=== PATIENT | female | born 1970 | race Caucasian/White ===

== ENCOUNTER 2023-02-25 05:27 | Outpatient (CLI) | payer BC ==
[~2023-02-25] VITALS: Ht 152.4 cm; Wt 60.9 kg
== END 2023-02-25 16:11 | disposition home or self-care (01) ==
LOC: PREOP 05:27
PROVIDERS: ATTEND Podiatrist Foot & Ankle Surgery
DX: Z01.818 Encounter for other preprocedural examination (principal)

== ENCOUNTER 2023-03-04 06:06 | Day surgery (SDC) | payer BC ==
[2023-03-04] VITALS (9 sets, daily range): BP systolic 95–130; BP diastolic 61–90
[~2023-03-04] VITALS: Ht 152 cm; Wt 60.9 kg
[2023-03-04] MEDS ORDERED: ceFAZolin INJECTION 1,000 MG in NS (IVPB) 50 ML IV ONE (06:30)
[2023-03-04] MEDS ORDERED: LACTATED RINGERS 1,000 ML IV PRN (06:30)
[2023-03-04] MEDS ORDERED: FAMOTIDINE 20MG/2ML IV (PEPCID) ONE (06:54)
[2023-03-04] MEDS ORDERED: ONDANSETRON 4 MG/2 ML (SDV) Z0FRAN ONE ×2 (06:54→07:14)
[2023-03-04] MEDS ORDERED: SCOPOLAMINE 1.5 MG (TRANSDERM-SCOP) PATCH ONE (06:54)
[2023-03-04] MEDS ORDERED: LIDOCAINE 1% INJ 20 ML VIAL ONE (06:58)
[2023-03-04] MEDS ORDERED: BUPIVACAINE 0.5% 30 ML (SENSORCAINE) VIAL ONE (06:59)
[2023-03-04] MEDS ORDERED: FAMOTIDINE 20MG/2ML IV (PEPCID) IV ONE (07:00)
[2023-03-04] MEDS ORDERED: CATHETER FLUSH 10 ML SYR IVP PRN (07:00)
[2023-03-04] MEDS ORDERED: ONDANSETRON 4 MG/2 ML (SDV) Z0FRAN IV ONE (07:00)
[2023-03-04] MEDS ORDERED: SCOPOLAMINE 1.5 MG (TRANSDERM-SCOP) PATCH TOP ONE (07:00)
[2023-03-04] MEDS ORDERED: MIDAZOLAM 2 MG/2 ML (VERSED) VIAL ONE (07:14)
[2023-03-04] MEDS ORDERED: fentaNYL INJ 100 MCG/2 ML AMP ONE (07:14)
[2023-03-04] MEDS ORDERED: PROPOFOL INJECTION 50 ML IV ONE (07:14)
[2023-03-04] MEDS ORDERED: proPOfol 200 MG/20 ML (DIPRIVAN) VIAL IV ONE (07:14)
--- NOTE | 2023-03-04 07:52 | Progress Note-Pre Operative ---
Pre-Operative Progress Note Date of Available H&P: Mar 04, 2023 Date H&P Reviewed: Mar 04, 2023 Time H&P Reviewed: 07:52 Pre-Operative Diagnosis: Hallux Limitus right YENNIFER BAINS DPTao Mar 04, 2023 07:52
--- NOTE | 2023-03-04 08:55 | Anesthesia-General Post-Op ---
General Patient Condition Mental Status/LOC: Same as Preop Cardiovascular: Satisfactory Nausea/Vomiting: Absent Respiratory: Satisfactory Pain: Controlled Complications: Absent Post Op Complications Complications None Follow Up Care/Instructions Patient Instructions None needed. Anesthesia/Patient Condition Patient Condition Patient is doing well, no complaints, stable vital signs, no apparent adverse anesthesia problems. No complications reported per nursing. RAFAELA TRIPP CRNA Mar 04, 2023 08:55
[2023-03-04] MEDS ORDERED: LACTATED RINGERS 1,000 ML IV SCH (09:00)
[2023-03-04] MEDS ORDERED: ONDANSETRON 4 MG/2 ML (SDV) Z0FRAN IVP PRN (09:00)
[2023-03-04] MEDS ORDERED: HYDROcodone/APAP 5 MG/325 MG (LORTAB) TAB PO PRN (09:00)
[2023-03-04] MEDS ORDERED: morphine INJ 10 MG/ML 1ML (SYR OR VIAL) IVP ONE (09:00)
--- NOTE | 2023-03-04 09:00 | Progress Note-Post Operative ---
Post-Operative Progess Note Surgeon (s)/Vibration Analyst (s) Surgeon YENNIFER BAINS DPM Vibration Analyst: none Pre-Operative Diagnosis Hallux Limitus right Post-Operative Diagnosis Same Procedure & Operative Findings Date of Procedure 03/04/23 Procedure Performed/Findings Cheilectomy, right Anesthesia Type General Estimated Blood Loss Estimated blood loss (mL): Minimal Specimens/Packing Specimens Removed bone of 1st MTPJ YENNIFER BAINS DPM Mar 04, 2023 09:00
[2023-03-04] MEDS ORDERED: ACHD5005 PO (09:03)
--- NOTE | 2023-03-04 14:43 | OPERATIVE REPORT ---
DATE OF SERVICE: 03/04/2023 SURGEON: Marina Bains DPM PREOPERATIVE DIAGNOSIS: Hallux rigidus, right. POSTOPERATIVE DIAGNOSIS: Hallux rigidus, right. PROCEDURE: Cheilectomy, right foot. WOUND CLASS: Clean. ANESTHESIA: General. HEMOSTASIS: Pneumatic thigh tourniquet at 250 mmHg. INDICATIONS: This 52-year-old female who presents complaining of a painful right great toe joint. Conservative therapy is met with unsatisfactory results and the patient is agreeable to surgical intervention after risks and complications were discussed at length. No guarantees were extended to the patient and she is willing to proceed. DESCRIPTION OF PROCEDURE: The patient was brought back to the operating table and placed in secure supine position. Appropriate timeout was performed. A general anesthetic was then induced. A pneumatic thigh tourniquet was placed on the right lower extremity over several layers of padding. The right foot was anesthetized utilizing 10 mL of 1:1 mixture of 1% Xylocaine and 0.5% Marcaine injected in a Schuster block. The right foot was then prepped and draped in normal sterile manner. The right foot was then elevated allowed to exsanguinate after which the tourniquet was inflated to 250 mmHg. Attention was then directed to the dorsal aspect of the right first metatarsophalangeal joint where a 5 cm longitudinal linear incision was created. The incision was deepened in the same plane with great care to identify and retract all vital neurovascular structures. Only necessary blood vessels were cauterized as encountered. The incision was deepened down to the capsular tissue where a longitudinal capsulotomy was performed. This exposed the dorsal eminence to the first metatarsal head as well as the base of the proximal phalanx, which was resected with sharp dissection as well as use of a power sagittal saw. These specimens were sent for gross and microscopic evaluation. The medial eminence of the first metatarsal head was also resected utilizing a power sagittal saw. There was considerable amount of full-thickness degeneration of the articular cartilage noted to the dorsal distal aspect of the first metatarsal head as well as the base of the proximal phalanx. I was then decided that a Eleuterio type modification to the cheilectomy should be performed. This allowed for excellent range of motion to the right first metatarsophalangeal joint, allowing for excellent stability as well. At this point, with the medial and lateral collateral ligaments intact. She had approximately 45 degrees of dorsiflexion after this procedure. The wound was flushed with copious amounts of normal saline and closure was then performed in layers. Deep closure was performed with 3-0 Vicryl, superficial with 4-0 Vicryl, skin closed with 4-0 Prolene in a horizontal mattress type stitch. Postoperative injection consisted of 6 mL of 0.5% Marcaine injected in a local infusion to the surgical site followed by 10 mg dexamethasone injected into the first metatarsophalangeal joint, right foot. Postoperative dressing consisted of Betadine-soaked Adaptic, sterile 4 x 4's, sterile Kerlix all secured with a Coban wrap. The patient tolerated the anesthesia and procedure well and was transported from the operating room to the recovery room with vital signs stable and vascular status intact to all digits of the right foot. She was given a prescription for Vicodin postoperatively. She is to be weightbearing, but minimal for life activities only been going to the restroom or dinner table. Otherwise, she is to rest, ice and elevate. I will see her in the office in 10 days. Time or sooner if necessary. She was also instructed to have range of motion exercise performed at home to the right first metatarsophalangeal joint starting in 2 days. Job ID: [id number] DocumentID: [id number] Dictated Date: 03/04/2023 09:09:55 Seafood Manager Date: 03/04/2023 14:42:00 Dictated By: MARINA BAINS DPM
--- NOTE | 2023-03-04 14:47 | Diagnostic Imaging Report ---
INDICATION: Right foot pain, postop. TECHNIQUE: AP and lateral views of the right foot were obtained. FINDINGS: There is marked degenerative change of the 1st MTP joint. There is no acute fracture. There are mild degenerative changes of the metatarsal joint. There is plantar and posterior calcaneal spurring. There is no unexpected radiopaque foreign body. IMPRESSION: Chronic changes of right foot as described above with no unexpected radiopaque foreign body post surgery. Dictated by: Dictated on workstation # [id number]
== END 2023-03-04 10:25 | disposition home or self-care (01) ==
LOC: SDC 06:06
PROVIDERS: ATTEND Podiatrist Foot & Ankle Surgery
DX: M20.21 Hallux rigidus, right foot (principal); E11.9 Type 2 diabetes mellitus without complications; M77.9 Enthesopathy, unspecified; Z79.84 Long term (current) use of oral hypoglycemic drugs
CPT/HCPCS: 73620; 87081